=== PATIENT | female | born 1990 ===

== ENCOUNTER 2022-02-27 23:55 | Emergency (ER) | payer OTHER ==
[2022-02-28] MEDS ORDERED: NA CHLORIDE 0.9% 1,000 ML ONE ×2 (00:52→02:06)
[2022-02-28] MEDS ORDERED: CEFTRIAXONE 1000 MG/VIAL ONE (00:52)
[2022-02-28] MEDS ORDERED: ONDANSETRON 4 MG/2 ML VIAL ONE ×2 (00:52→03:17)
[2022-02-28] MEDS ORDERED: KETOROLAC 30 MG/ML INJ ONE (00:52)
[2022-02-28] MEDS ORDERED: NA CHLORIDE 0.9% 50 ML IV ONE (00:52)
[2022-02-28 00:56] LABS: Absolute Lymphocytes (CBC) 1.5 K/uL (0.7-4.9); Hematocrit 38.9 % (36.0-45.0); Lymphocytes % 13.8 % (15.3-44.8); MCV 83.1 fL (80-100); MPV 8.4 fL (7.6-11.3); RBC Red Blood Cell Count 4.68 M/uL (3.86-4.86)
[2022-02-28 01:15] LABS: Urine Blood 2+ (Negative); Urine Glucose Negative (Negative); Urine Protein 1+ (Negative); Urine pH 8.5 (5.0-7.0)
[2022-02-28 01:16] LABS: Albumin 3.4 g/dL (3.4-5.0); Bilirubin Total 0.3 mg/dL (0.2-1.0); Potassium 3.4 mmol/L (3.5-5.1); Protein, Total 7.8 g/dL (6.4-8.2)
[2022-02-28 01:28] LABS: Urine Bacteria <20 /HPF (<20); Urine Mucus Slight /HPF (None Seen); Urine RBC >50 /HPF (None Seen)
[2022-02-28] MEDS ORDERED: Levofloxacin500mg IV 500 MG/100 ML BAG IV ONE (02:06)
[2022-02-28] MEDS ORDERED: MORPHINE 2 MG/ML SYR ONE ×2 (02:50→03:10)
--- NOTE | 2022-02-28 03:04 | ER ---
Nurse's Notes [facility] Name: Crista Saavedra Age: 31 yrs Sex: Female : 1990 Arrival Date: 02/27/2022 Time: 23:57 Bed 16 Private MD: Diagnosis: Hydronephrosis with renal and ureteral calculous obstruction-RIGHT1.4CM, PROXIMAL \T\ 0.5CMPROXIMAL LEFT;UTI/ Urinary tract infection, site not specified Presentation: 02/28 00:02 Chief complaint: Sudden left flank pain and N/V x 2 hours. On Macrobid day 4 for UTI. hb Coronavirus screen: At this time, the client does not indicate any symptoms associated with coronavirus-19. Ebola Screen: No symptoms or risks identified at this time. Risk Assessment: Do you want to hurt yourself or someone else? Patient reports no desire to harm self or others. Onset of symptoms was February 28, 2022. 00:02 Method Of Arrival: Ambulatory hb 00:02 Acuity: [place] 3 hb 01:22 Initial Sepsis Screen: Does the patient meet any 2 criteria? No. Patient's initial ke1 sepsis screen is negative. Does the patient have a suspected source of infection? No. Patient's initial sepsis screen is negative. Triage Assessment: 01:00 General: Appears uncomfortable, Behavior is appropriate for age. 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 - Social history:: Smoking status: Patient denies any tobacco usage or history of. - Family history:: not pertinent. Screenin:19 Abuse screen: Denies threats or abuse. Nutritional screening: No deficits noted. ke1 Tuberculosis screening: No symptoms or risk factors identified. Fall Risk None identified. Assessment: 01:00 Pain: Complains of pain in L flank Pain currently is 10 out of 10 on a pain scale. ke1 01:18 Reassessment: CT called msg left to notify of UPT being done. ke1 01:19 Neuro: ke1 02:47 Pain: Complains of pain in left flank Pain currently is 7 out of 10 on a pain scale. ke1 03:13 GI: Reports nausea. ke1 04:13 GI: Reports nausea. ke1 04:15 Pain: Pain currently is 8 out of 10 on a pain scale. ke1 06:06 Reassessment: Callled report [facility] [place], spoke to house sup and was asked to [facility] call back in 10 mn because nurse busy in room. Vital Signs: 00:02 BP 139 / 79; Pulse 61; Resp 16; Temp 98.2(TE); Pulse Ox 100% on R/A; Weight 73.94 kg; hb Height 5 ft. 2 in. (157.48 cm); Pain 02/15; 01:50 Pain 1/; ke1 03:44 BP 168 / 94; Pulse 83; Resp 19; Pulse Ox 100% on R/A; ke1 04:00 Pain 6/10; ke1 04:24 BP 133 / 76; Pulse 86; Resp 19; Pulse Ox 98% on R/A; ke1 04:40 Pain 1/10; ke1 06:47 BP 112 / 73; Pulse 64; Resp 16; Temp 98.4; Pulse Ox 100% on R/A; ke1 00:02 Body Mass Index 29.81 (73.94 kg, 157.48 cm) hb ED Course: 02/27 23:57 Patient arrived in ED. ja2 02/28 00:01 Mis Camarillo, RN is Primary Nurse. ke1 00:03 Triage completed. hb 00:04 Arm band placed on. hb 00:19 Rodolfo Perez MD is Attending Physician. janna 00:48 Inserted saline lock: 20 gauge in left antecubital area, using aseptic technique. ke1 00:49 Lipase Sent. ke1 00:49 CMP Sent. ke1 00:49 CBC with Diff Sent. ke1 01:17 Urine Microscopic Only Sent. ke1 01:20 Patient has correct armband on for positive identification. Bed in low position. Call 1 light in reach. 01:46 CT Stone Protocol In Process Unspecified. EDMS 03:43 SARS RAPID Sent. ke1 07:05 No provider procedures requiring assistance completed. Patient transferred, IV remains ko1 in place. Administered Medications: 01:16 Drug: Rocephin (cefTRIAXone) 1 grams Route: IV; Rate: per protocol; Site: left [facility] antecubital; 01:17 Drug: NS 0.9% 1000 ml Route: IV; Rate: 1 bolus; Site: left antecubital; ke1 01:17 Drug: Zofran (Ondansetron) 4 mg Route: IVP; Site: left antecubital; ke1 01:40 Follow up: Response: No adverse reaction ke1 01:17 Drug: TORadol (ketorolac) 30 mg Route: IVP; Site: left antecubital; ke1 01:50 Follow up: Pain 05/18 Adult; Response: Pain is decreased ke1 02:10 Drug: NS 0.9% 1000 ml Route: IV; Rate: 1 bolus; Site: left antecubital; ke1 02:10 Drug: levofloxacin 500 mg Volume: 100 ml; Route: IVPB; Infused Over: 60 mins; Site: ke1 left antecubital; 02:53 Drug: morphine 2 mg Route: IVP; Infused Over: 4 mins; Site: left antecubital; ke1 03:13 Follow up: Response: Pain is unchanged, physician notified ke1 03:13 Drug: morphine 2 mg Route: IVP; Infused Over: 4 mins; Site: left antecubital; ke1 03:30 Follow up: Response: Pain is unchanged, physician notified ke1 03:19 Drug: Zofran (Ondansetron) 4 mg Route: IVP; Site: left antecubital; ke1 03:42 Follow up: Response: Nausea is decreased ke1 03:28 Drug: Flomax (tamsulosin) 0.4 mg Route: PO; ke1 05:23 Follow up: Response: No adverse reaction ke1 03:42 Drug: Dilaudid (HYDROmorphone) 1 mg Route: IVP; Site: left antecubital; ke1 04:00 Follow up: Pain 6/10 Adult; Response: Pain is decreased ke1 04:24 Drug: Phenergan (promethazine) 12.5 mg Route: IVP; Site: left antecubital; ke1 04:40 Follow up: Response: Nausea is decreased ke1 04:24 Drug: fentaNYL (PF) 25 mcg Route: IVP; Site: left antecubital; ke1 04:40 Follow up: Response: Pain is decreased ke1 04:40 Follow up: Pain 05/18 Adult ke1 Medication: 07:05 VIS not applicable for this client. ko1 Outcome: 03:03 ER care complete, transfer ordered by . janna 07:08 Transferred by ground EMS [facility]. to [facility] [facility] [place] ko1 form completed. X-rays sent w/ patient. 07:08 Condition: stable 07:08 Instructed on the need for transfer, Demonstrated understanding of instructions. 07:22 Patient left the ED. ko1 Signatures: Dispatcher [employer] EDMS Rodolfo Perez MD MD cha Baxter, Heather, RN RN Renetta Paniagua Kouassi RN RN ke1 Gill Peres RN RN ko1
--- NOTE | 2022-02-28 03:04 | EDPHYS ---
Physician Documentation [facility] Name: Crista Saavedra Age: 31 yrs Sex: Female : 1990 Arrival Date: 02/27/2022 Time: 23:57 Bed 16 Private MD: ED Physician Rodolfo Perez HPI: 02/28 01:27 This 31 yrs old Female presents to ER via Ambulatory with complaints of Back janna Pain, Nausea/Vomiting. 01:27 The patient presents with pain that is acute, with no known mechanism of injury. The janna symptoms are located in the left mid back. Onset: The symptoms/episode began/occurred just prior to arrival. The pain radiates to the left mid back. Associated signs and symptoms: Pertinent positives: dysuria, nausea, vomiting. The problem was sustained from unknown cause. Modifying factors: The patient symptoms are alleviated by nothing, the patient symptoms are aggravated by nothing. Severity of symptoms: At their worst the symptoms were moderate, in the emergency department the symptoms are unchanged. The patient has not experienced similar symptoms in the past. 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 - Social history:: Smoking status: Patient denies any tobacco usage or history of. - Family history:: not pertinent. ROS: 01:27 Constitutional: Negative for fever, chills, and weight loss, Eyes: Negative for injury, janna pain, redness, and discharge, ENT: Negative for injury, pain, and discharge, Neck: Negative for injury, pain, and swelling, Cardiovascular: Negative for chest pain, palpitations, and edema, Respiratory: Negative for shortness of breath, cough, wheezing, and pleuritic chest pain, Abdomen/GI: Negative for abdominal pain, nausea, vomiting, diarrhea, and constipation, : Negative for injury, bleeding, discharge, and swelling, MS/Extremity: Negative for injury and deformity, Skin: Negative for injury, rash, and discoloration, Neuro: Negative for headache, weakness, numbness, tingling, and seizure, Psych: Negative for depression, anxiety, suicide ideation, homicidal ideation, and hallucinations, Allergy/Immunology: Negative for hives, rash, and allergies, Endocrine: Negative for neck swelling, polydipsia, polyuria, polyphagia, and marked weight changes, Hematologic/Lymphatic: Negative for swollen nodes, abnormal bleeding, and unusual bruising. :27 Back: Positive for injury or acute deformity, flank pain, on the left. Exam: :27 Constitutional: This is a well developed, well nourished patient who is awake, alert, janna and in no acute distress. Head/Face: Normocephalic, atraumatic. Eyes: Pupils equal round and reactive to light, extra-ocular motions intact. Lids and lashes normal. Conjunctiva and sclera are non-icteric and not injected. Cornea within normal limits. Periorbital areas with no swelling, redness, or edema. ENT: Nares patent. No nasal discharge, no septal abnormalities noted. Tympanic membranes are normal and external auditory canals are clear. Oropharynx with no redness, swelling, or masses, exudates, or evidence of obstruction, uvula midline. Mucous membranes moist. Neck: Trachea midline, no thyromegaly or masses palpated, and no cervical lymphadenopathy. Supple, full range of motion without nuchal rigidity, or vertebral point tenderness. No Meningismus. Chest/axilla: Normal chest wall appearance and motion. Nontender with no deformity. No lesions are appreciated. Cardiovascular: Regular rate and rhythm with a normal S1 and S2. No gallops, murmurs, or rubs. Normal PMI, no JVD. No pulse deficits. Respiratory: Lungs have equal breath sounds bilaterally, clear to auscultation and percussion. No rales, rhonchi or wheezes noted. No increased work of breathing, no retractions or nasal flaring. Abdomen/GI: Soft, non-tender, with normal bowel sounds. No distension or tympany. No guarding or rebound. No evidence of tenderness throughout. Skin: Warm, dry with normal turgor. Normal color with no rashes, no lesions, and no evidence of cellulitis. MS/ Extremity: Pulses equal, no cyanosis. Neurovascular intact. Full, normal range of motion. Neuro: Awake and alert, GCS 15, oriented to person, place, time, and situation. Cranial nerves II-XII grossly intact. Motor strength 5/5 in all extremities. Sensory grossly intact. Cerebellar exam normal. Normal gait. Psych: Awake, alert, with orientation to person, place and time. Behavior, mood, and affect are within normal limits. 01:27 Back: pain, that is mild, that is moderate, ROM is normal, normal spinal alignment noted, CVA tenderness, that is mild, is noted on the left. Vital Signs: 00:02 BP 139 / 79; Pulse 61; Resp 16; Temp 98.2(TE); Pulse Ox 100% on R/A; Weight 73.94 kg; hb Height 5 ft. 2 in. (157.48 cm); Pain 10/10; 01:50 Pain 1/10; ke1 03:44 BP 168 / 94; Pulse 83; Resp 19; Pulse Ox 100% on R/A; ke1 04:00 Pain 6/10; ke1 04:24 BP 133 / 76; Pulse 86; Resp 19; Pulse Ox 98% on R/A; ke1 04:40 Pain 1/10; ke1 06:47 BP 112 / 73; Pulse 64; Resp 16; Temp 98.4; Pulse Ox 100% on R/A; ke1 00:02 Body Mass Index 29.81 (73.94 kg, 157.48 cm) hb MDM: 00:19 Patient medically screened. janna 01:30 Differential diagnosis: Basilar Pneumonia Cholelithiasis Obesity Peptic Ulcer janna Pyelonephritis sprain, Ureterolithiasis. Data reviewed: vital signs, nurses notes, lab test result(s), radiologic studies. Data interpreted: panel monitor: rate is 61 beats/min, rhythm is regular, Pulse oximetry: on room air is 100 %. Counseling: I had a detailed discussion with the patient and/or guardian regarding: the historical points, exam findings, and any diagnostic results supporting the discharge/admit diagnosis, lab results, radiology results, the need for outpatient follow up, for definitive care, a family practitioner. 02/28 00:21 Order name: CBC with Diff; Complete Time: 01:03 janna 02/28 00:21 Order name: CMP; Complete Time: 01:18 janna 02/28 00:21 Order name: Lipase; Complete Time: 01:18 janna 02/28 00:21 Order name: Urine Microscopic Only; Complete Time: 02:57 janna 02/28 01:15 Order name: Urine Dipstick-Ancillary; Complete Time: 01:18 EDMS 02/28 01:17 Order name: Urine --Ancillary (enter results); Complete Time: 02:57 ds4 02/28 00:21 Order name: CT Stone Protocol [facility] 02/28 01:34 Order name: Urine Culture [facility] 02/28 03:13 Order name: SARS RAPID ds4 02/28 00:21 Order name: IV Saline Lock; Complete Time: 00:49 [facility] 02/28 00:21 Order name: Labs collected and sent; Complete Time: 00:49 [facility] 02/28 00:21 Order name: Urine Dipstick-Ancillary (obtain specimen); Complete Time: 01:16 [facility] 02/28 00:21 Order name: Urine Test (obtain specimen); Complete Time: 01:16 [facility] Administered Medications: 01:16 Drug: Rocephin (cefTRIAXone) 1 grams Route: IV; Rate: per protocol; Site: left ke1 antecubital; 01:17 Drug: NS 0.9% 1000 ml Route: IV; Rate: 1 bolus; Site: left antecubital; ke1 01:17 Drug: Zofran (Ondansetron) 4 mg Route: IVP; Site: left antecubital; ke1 01:40 Follow up: Response: No adverse reaction ke1 01:17 Drug: TORadol (ketorolac) 30 mg Route: IVP; Site: left antecubital; ke1 01:50 Follow up: Pain 05/18 Adult; Response: Pain is decreased ke1 02:10 Drug: NS 0.9% 1000 ml Route: IV; Rate: 1 bolus; Site: left antecubital; ke1 02:10 Drug: levofloxacin 500 mg Volume: 100 ml; Route: IVPB; Infused Over: 60 mins; Site: ke1 left antecubital; 02:53 Drug: morphine 2 mg Route: IVP; Infused Over: 4 mins; Site: left antecubital; ke1 03:13 Follow up: Response: Pain is unchanged, physician notified ke1 03:13 Drug: morphine 2 mg Route: IVP; Infused Over: 4 mins; Site: left antecubital; ke1 03:30 Follow up: Response: Pain is unchanged, physician notified ke1 03:19 Drug: Zofran (Ondansetron) 4 mg Route: IVP; Site: left antecubital; ke1 03:42 Follow up: Response: Nausea is decreased ke1 03:28 Drug: Flomax (tamsulosin) 0.4 mg Route: PO; ke1 05:23 Follow up: Response: No adverse reaction ke1 03:42 Drug: Dilaudid (HYDROmorphone) 1 mg Route: IVP; Site: left antecubital; ke1 04:00 Follow up: Pain / Adult; Response: Pain is decreased ke1 04:24 Drug: Phenergan (promethazine) 12.5 mg Route: IVP; Site: left antecubital; ke1 04:40 Follow up: Response: Nausea is decreased ke1 04:24 Drug: fentaNYL (PF) 25 mcg Route: IVP; Site: left antecubital; ke1 04:40 Follow up: Response: Pain is decreased ke1 04:40 Follow up: Pain 05/18 Adult ke1 Disposition Summary: 02/28/22 03:03 Transfer Ordered Transfer Location: [facility] janna Reason: Higher level of care janna Condition: Stable janna Problem: new janna Symptoms: have improved janna Accepting Physician: TO [facility](02/28/22 07:22) ko1 Diagnosis - Hydronephrosis with renal and ureteral calculous obstruction - RIGHT1.4CM, PROXIMAL janna \T\ 0.5CMPROXIMAL LEFT - UTI/ Urinary tract infection, site not specified janna Discharge Instructions: - Discharge Summary Sheet janna - Dysuria janna - Urinary Tract Infection, Adult janna - Urinary Tract Infection, Adult, [id number] janna - Antibiotic Medicine, Adult, [id number] janna - Vomiting, Adult janna Forms: - Medication Reconciliation Form janna - SBAR form [facility] Prescriptions: - Pyridium 200 mg Oral Tablet - take 1 tablet by ORAL route every 8 hours for 3 days; 9 tablet; Refills: 0, [facility] Product Selection Permitted - Zofran 4 mg Oral Tablet - take 1 tablet by ORAL route every 12 hours As needed; 20 tablet; Refills: 0, [facility] Product Selection Permitted - levofloxacin 500 mg Oral Tablet - take 1 tablet by ORAL route once daily for 8-10 days; 9 tablet; Refills: 0, [facility] Product Selection Permitted - Bactrim DS 800-160 mg Oral Tablet - take 1 tablet by ORAL route every 12 hours for 7 days; 14 tablet; Refills: 0, [facility] Product Selection Permitted Signatures: Dispatcher [employer] Rodolfo Landry MD MD cha Baxter, Heather, RN RN Mis Camarillo RN RN ke1 Gill Peres RN RN ko1 Corrections: (The following items were deleted from the chart) 03:03 TO JUDY rocha
[2022-02-28] MEDS ORDERED: TAMSULOSIN 0.4 MG SR CAP ONE (03:21)
[2022-02-28] MEDS ORDERED: HYDROMORPHONE HCL 1 MG/ML INJ ONE (03:35)
[2022-02-28 04:00] LABS: SARS-CoV-2 Antigen Rapid Res Negative (Negative)
[2022-02-28] MEDS ORDERED: FENTANYL CITR 100 MCG/2 ML ONE (04:16)
[2022-02-28] MEDS ORDERED: PROMETHAZINE INJ 25 MG/ML AMP ONE (04:17)
[2022-02-28 07:52] VITALS: BP 112/73; TEMP 98.4; O2SAT 100
--- NOTE | 2022-03-01 13:48 | RAD REPORT ---
EXAM DESCRIPTION: CT - Stone Protocol - 02/28/2022 1:45 am CLINICAL HISTORY: The patient is 31 years old and is Female; FLANK PAIN TECHNIQUE: Axial computed tomography images of the abdomen and pelvis without intravenous contrast. Sagittal and coronal reformatted images were created and reviewed. This CT exam was performed usi ng one or more of the following dose reduction techniques: automated exposure control, adjustment o f the mA and/or kV according to patient size, and/or use of iterative reconstruction technique. COMPARISON: No relevant prior studies available. FINDINGS: LUNG BASES: Unremarkable. No mass. No consolidation. ABDOMEN: LIVER: Homogeneous without focal mass. GALLBLADDER AND BILE DUCTS: No calcified stones. No ductal dilation. PANCREAS: Unremarkable. No ductal dilation. SPLEEN: Unremarkable. ADRENALS: Unremarkable. No mass. KIDNEYS AND URETERS: Mild right hydronephrosis and proximal hydroureter with associated edema is present secondary to a proximal right ureteral calculus measuring 1.4 cm in cranial caudal dimension. Mild left hydronephrosis and proximal hydroureter is present secondary to a proximal left ureteral calculus measuring 0.5 cm in cranial caudal dimension. Minimal bilateral perinephric stranding is present. Bilateral intrarenal calcifications are present. STOMACH AND BOWEL: Stomach is distended with food contents. The small bowel is normal in caliber. Stool is present throughout colon. There is no mucosal thickening or evidence of bowel obstruction. PELVIS: APPENDIX: No findings to suggest acute appendicitis. BLADDER: Bladder is nearly empty. No stones. REPRODUCTIVE: A 4 cm left ovarian cyst is present. A smaller 2.5 cm left paraovarian cyst is pres ent. No follow-up imaging is recommended. The uterus and right ovary are unremarkable. ABDOMEN and PELVIS: INTRAPERITONEAL SPACE: Unremarkable. No free air. No significant fluid collection. BONES/JOINTS: No acute fracture. SOFT TISSUES: The soft tissues are normal. VASCULATURE: Multiple calcified phleboliths are present within the pelvis. No abdominal aortic aneurysm. LYMPH NODES: Unremarkable. No enlarged lymph nodes. IMPRESSION: 1. Mild right hydronephrosis and proximal hydroureter with associated edema is present secondary to a proximal right ureteral calculus measuring 1.4 cm in cranial caudal dimension. 2. Mild left hydronephrosis and proximal hydroureter is present secondary to a proximal left ureter al calculus measuring 0.5 cm in cranial caudal dimension. 3. Bilateral nephrolithiasis. Electronically signed by: Nya Marte MD 02/28/2022 2:07 AM CDT Due to temporary technical issues with the PACS/Fluency reporting system, reports are being signed by the in house radiologists without review as a courtesy to insure prompt reporting. The interpreting radiologist is fully responsible for the content of the report.
== END 2022-02-28 07:22 | disposition short-term general hospital (02) ==
LOC: ER 23:55
DX: N13.2 Hydronephrosis with renal and ureteral calculous obstruction (principal); N39.0 Urinary tract infection, site not specified; Z20.822 Contact with and (suspected) exposure to COVID-19
CPT/HCPCS: 87088; 85025; 87086; 36415; 81025; 83690; 80053; 76377; 74176; 96375; 96374; 99285; 87811; J2550; J3010; J2270 ×2; J1170; J7030 ×2; J2405 ×2; 81003; 81015